=== PATIENT | female | born 1955 | race African-American/Black ===

== ENCOUNTER 2019-09-22 05:02 | Emergency (ER) | payer SELFPAY ==
[2019-09-22] MEDS ORDERED: LABETALOL HCL INJ 20 MG/4 ML DISP.SYRIN IV ONE ×3 (05:39→09:24)
--- NOTE | 2019-09-22 05:41 | RADIOLOGY REPORT (SQ) ---
EXAM DESCRIPTION: CT HEAD WITHOUT IV CONTRAST COMPLETED DATE/TME: 09/22/2019 00:00 CLINICAL HISTORY: 64 years, Female, STROKE PROTOCOL, LOSS OF VISION LEFT EYE COMPARISON: None. TECHNIQUE: 206 Images stored on PACS. All CT scanners at this facility use dose modulation, iterative reconstruction, and/or weight based dosing when appropriate to reduce radiation dose to as low as reasonably achievable (ALARA). [facility]: Dose Right [facility]: CareDose [facility]: Dose Right [facility]: Teradose 4D [facility]: [employer] LIMITATIONS: None. FINDINGS: The globes are intact. Paranasal sinuses and mastoid air cells are well aerated. No displaced or depressed skull fracture. No intra or extra-axial hemorrhage. Pleural-based calcifications. CT is limited for evaluation of acute infarct. No CT evidence for large or territorial acute infarct. No mass or midline shift. Mild age-appropriate atrophy. IMPRESSION: No acute intracranial abnormality TECHNICAL DOCUMENTATION: Quality ID # 436: Final reports with documentation of one or more dose reduction techniques (e.g., Automated exposure control, adjustment of the mA and/or kV according to patient size, use of iterative reconstruction technique) copyright 2010 [employer]- All Rights Reserved
[2019-09-22] MEDS ORDERED: METOPROLOL TARTRATE 25 MG TABLET PO ONE (06:18)
--- NOTE | 2019-09-22 06:48 | ER Document Report ---
ED General - General Chief Complaint: Loss of Vision Stated Complaint: LEFT EYE BLINDNESS Time Seen by Provider: 09/22/19 05:30 - HPI Notes: 64-year-old female history of hypertension, hyperlipidemia presents with painless foveal vision loss in left eye since waking up this morning less than 1 hour prior to arrival. Patient says she was completely well when she went to bed and when she woke up prior to arrival she noticed that her vision was blurry, when she covered her left eye her vision was normal but when she covered her right eye she is not able to see in her central field of vision. Endorses having floaters in both eyes. Patient has not been compliant with antihypertensives for many months secondary to cost. Says that in the past there was "eye doctor" who was worried about her right eye for unknown reason bu t says never received any diagnosis and never was treated for any eye condition. Patient denies trauma, pain, prior episodes, stroke history, diabetes, contact lens use, glaucoma history, weakness/numbness, facial droop, change in vision/gait - Related Data Allergies/Adverse Reactions: No Known Allergies Allergy (Unverified 09/22/19 05:13) Past Medical History - General Information source: Patient - Social History Smoking Status: Never Smoker Frequency of alcohol use: None Drug Abuse: None Family History: Reviewed & Not Pertinent Patient has homicidal ideation: No - Past Medical History Cardiac Medical History: Reports: Hx Hypercholesterolemia, Hx Hypertension Musculoskeletal Medical History: Reports Hx Arthritis Review of Systems - Review of Systems Notes: REVIEW OF SYSTEMS: CONSTITUTIONAL : Denies fever, chills, or sweats. EENT: Denies recent cold/sinus symptoms, denies throat pain CARDIOVASCULAR: Denies chest pain, PADDY RESPIRATORY: Denies cough, denies shortness of breath. GASTROINTESTINAL: Denies abdominal pain, nausea/vomiting. GENITOURINARY: Denies difficulty urinating, painful urination. FEMALE GENITOURINARY: Denies abnormal vaginal bleeding, vaginal discharge. MUSCULOSKELETAL: Denies neck pain, back pain. SKIN: Denies rash or skin lesions. HEMATOLOGIC : Denies easy bruising or bleeding. LYMPHATIC: Denies swollen, enlarged glands. NEUROLOGICAL: Denies headache, denies change in gait. PSYCHIATRIC: Denies anxiety or stress or depression. Physical Exam - Vital signs Vitals: Temp 98.7 F 09/22/19 05:11 - Notes Notes: PHYSICAL EXAMINATION: GENERAL: Well-appearing, well-nourished and in no acute distress. HEAD: Atraumatic, normocephalic. EYES: Pupils equal round and appropriate constriction, sclera anicteric, conjunctiva are normal with no conjunctival injection, extraocular movements intact b/l, OS retinal veins dilated on funduscopic exam without any visible hemorrhages, OD normal funduscopic exam, visual acuity light detection OS and 20/40 OD, visual [place] intact in both eyes ENT: nares patent, moist mucous membranes. NECK: Normal range of motion, supple without lymphadenopathy LUNGS: Breath sounds clear to auscultation bilaterally and equal. No wheezes rales or rhonchi. HEART: Regular rate and rhythm without murmurs ABDOMEN: Soft, nontender, no guarding, no masses, no CVAT EXTREMITIES: Normal range of motion, no pitting or edema. No cyanosis. NEUROLOGICAL: Awake, alert, conversing appropriately, moves all extremities spontaneously, cranial nerves III through XII intact bilaterally, 5 out of 5 strength in all extremities, normal sensation in all extremities, normal [id number], normal gait PSYCH: Normal mood, normal affect. SKIN: Warm, Dry, normal turgor, no rashes or lesions noted. - HEENT Visual acuity- Right eye: 20/40 Visual acuity- Left eye: 0/0 Visual acuity- Both eyes: 20/40 Corrective lenses worn: Yes - Patient unable to see anything out of left eye. Course - Re-evaluation Re-evalutation: 09/22/19 06:59 Transfer came in as a stroke alert for vision loss, but given dilated retinal veins on left eye funduscopic exam and bilateral floaters symptoms more consistent with hypertensive emergency complicated by retinal hemorrhages versus CRVO. Not consistent with acute angle-closure glaucoma. I have initiated transfer to [facility] for ophthalmologic consult and initiated control of patient's blood pressure with labetalol iv and metoprolol po 09/22/19 07:14 Patient blood pressure initially improved to 199/88 with a decrease in map of 17% which was on target but then increased again, redosed labetalol while metoprolol reaching peak effect, discussed case with hospitalist at [facility] and agreed that will defer starting IV drip for now. Patient accepted to [facility] by Dr. Lakhani. - Vital Signs Vital signs: Temp Pulse Resp BP Pulse Ox 98.7 F 92 20 230/85 H 100 09/22/19 05:11 09/22/19 05:40 09/22/19 06:32 09/22/19 06:32 09/22/19 06:32 - EKG Interpretation by Me Additional EKG results interpreted by me: 09/22/19 06:49 Heart rate 95, normal sinus rhythm, no significant ST elevations or depressions, no significant T wave abnormalities, LVH Discharge - Discharge Clinical Impression: Hypertensive emergency Condition: Fair Disposition: [facility]
[2019-09-22] MEDS ORDERED: HYDRALAZINE HCL INJ/PF 20 MG/1 ML SDV IV ONE (10:39)
[2019-09-22 11:36] VITALS: BP 175/81
--- NOTE | 2019-09-23 11:08 | EKG REPORT ---
SEVERITY:- ABNORMAL ECG - SINUS RHYTHM PROBABLE LEFT ATRIAL ABNORMALITY INCOMPLETE RBBB AND LAFB LEFT VENTRICULAR HYPERTROPHY ANTERIOR Q WAVES, POSSIBLY DUE TO LVH : Confirmed by: Rosanna Davis MD 23-Sep-2019 11:08:09
== END 2019-09-22 11:50 | disposition short-term general hospital (02) ==
LOC: ER 05:02
DX: I16.1 Hypertensive emergency (principal); I10 Essential (primary) hypertension; H35.09 Other intraretinal microvascular abnormalities; H54.62 Unqualified visual loss, left eye, normal vision right eye; H53.8 Other visual disturbances; Z91.14 Patient's other noncompliance with medication regimen
CPT/HCPCS: 93005; 99285; 96374; 82962; 70450; 93010; J0360; J3490